=== PATIENT | female | born 1960 | race Caucasian/White ===

== ENCOUNTER 2020-10-24 07:21 | Day surgery (SDC) | payer MEDICAID, SELFPAY ==
[~2020-10-24] VITALS: Ht 160 cm; Wt 65.8 kg
[2020-10-24] MEDS ORDERED: SIMETHICONE 40 MG/0.6 ML ML ONE (08:50)
[2020-10-24] MEDS ORDERED: MIDAZOLAM HCL 5 MG/5 ML VIAL ONE (08:51)
[2020-10-24] MEDS ORDERED: fentaNYL CITRATE/PF 100 MCG/2 ML AMP ONE (08:51)
[2020-10-24 10:54] VITALS: BP_SYST 119
== END 2020-10-24 10:05 | disposition home or self-care (01) ==
LOC: SDS 07:21 → SMU 07:23 → SDS 10:05
PROVIDERS: ATTEND Internal Medicine
DX: K59.00 Constipation, unspecified (principal); K57.30 Diverticulosis of large intestine without perforation or abscess without bleeding; K64.8 Other hemorrhoids; R10.32 Left lower quadrant pain; Z79.899 Other long term (current) drug therapy
CPT/HCPCS: 36415; 45378; 87426; 99152; G0378; J2250; J3010